=== PATIENT | male | born 1960 | race Caucasian/White ===

== ENCOUNTER → 2018-06-15 | Outpatient (CLI) | payer BC ==
[~2018-06-15] MED LIST: ALBU90OI6 INH; ASPI325 PO; CELE200 PO; FISH1000 PO; HYDR1TAB94 PO; LO-DOSE ASPIRIN81 MG PO; MULVITMIND PO; NUCYNTA75 MG PO; OMEG1CAP30 PO; OXYACE5T PO; PREG150 PO; Simvastatin10 MG PO; TADA10TA; Vitamin E & K S52 ML TP; ZESTORETIC 20-251 EA PO; Zestril30 MG
== END | disposition home or self-care (01) ==
LOC: PLD 11:03 → LAB SHORT 11:03
DX: D22.72 Melanocytic nevi of left lower limb, including hip (principal); D22.71 Melanocytic nevi of right lower limb, including hip
CPT/HCPCS: 88305

== ENCOUNTER 2018-07-03 06:53 | Day surgery (SDC) | payer BC ==
[~2018-07-03] VITALS: Ht 175.3 cm; Wt 117.0 kg
== END 2018-07-03 08:55 | disposition home or self-care (01) ==
LOC: ORSCSDS 06:53
PROVIDERS: Surgery
PROC: 0DBM8ZX Excision of Descending Colon, Via Natural or Artificial Opening Endoscopic, Diagnostic (ICD-10-PCS; principal; 2018-07-03 08:00)
DX: Z12.11 Encounter for screening for malignant neoplasm of colon (principal); D12.4 Benign neoplasm of descending colon; G47.33 Obstructive sleep apnea (adult) (pediatric); I10 Essential (primary) hypertension; Z79.82 Long term (current) use of aspirin; Z79.899 Other long term (current) drug therapy; Z87.891 Personal history of nicotine dependence
CPT/HCPCS: 88305; J0330; J0461; J1980; J2250; J2405; J2704; J7120

== ENCOUNTER 2018-08-21 20:14 | Emergency (ER) | payer BC ==
[~2018-08-21] VITALS: Ht 175.3 cm; Wt 119.8 kg
[2018-08-22] MEDS ORDERED: KETO10 PO (17:14)
== END 2018-08-21 21:08 | disposition home or self-care (01) ==
LOC: ER 20:14
DX: M75.101 Unspecified rotator cuff tear or rupture of right shoulder, not specified as traumatic (principal); Z88.6 Allergy status to analgesic agent; Z88.8 Allergy status to other drugs, medicaments and biological substances; Z91.013 Allergy to seafood; Z79.899 Other long term (current) drug therapy; Z79.82 Long term (current) use of aspirin; Z87.891 Personal history of nicotine dependence
CPT/HCPCS: 96372; 99283-25; J1885

== ENCOUNTER 2018-08-22 16:22 | Emergency (ER) | payer BC ==
[~2018-08-22] VITALS: Ht 165.1 cm; Wt 71.2 kg
[2018-08-22] MEDS ORDERED: KETO10 PO (17:14)
== END 2018-08-22 17:33 | disposition home or self-care (01) ==
LOC: ER 16:22
DX: M75.81 Other shoulder lesions, right shoulder (principal); G62.9 Polyneuropathy, unspecified; G47.30 Sleep apnea, unspecified; Z88.6 Allergy status to analgesic agent; Z91.013 Allergy to seafood; Z91.048 Other nonmedicinal substance allergy status; Z79.82 Long term (current) use of aspirin; Z79.899 Other long term (current) drug therapy; Z87.891 Personal history of nicotine dependence
CPT/HCPCS: 96372; 99283-25; J1885

== ENCOUNTER → 2019-12-10 | Outpatient (CLI) | payer BC ==
[~2019-12-10] MED LIST changes: +AMLODIPINE BES2.5 MG PO; +COQ1050 MG PO; -FISH1000 PO; +Fish Oil PO; +KETO10 PO; +MAGNESIUM PO; +MSM1000 M3 PO; +VITAMIN B COMPLEX PO; +VITAMIN B125000 MC1 PO
[2019-12-13 06:06] LABS: COTININE Negative ng/mL (Cutoff=300)
== END | disposition home or self-care (01) ==
LOC: LAB 16:58 → LAB SHORT 16:58
PROVIDERS: Orthopaedic Surgery
DX: Z01.818 Encounter for other preprocedural examination (principal); M17.12 Unilateral primary osteoarthritis, left knee; Z87.891 Personal history of nicotine dependence

== ENCOUNTER 2020-01-04 08:25 | Day surgery (SDC) | payer BC ==
[~2020-01-04] VITALS: Ht 175.3 cm; Wt 127.2 kg
--- NOTE | 2020-01-04 09:43 | NUR ---
Ambulatory in Day Surgery History, Chart, Medications and Allergies reviewed before start of procedure. Pre-Op teaching done. Pt verbalizes understanding.
--- NOTE | 2020-01-04 17:15 | NUR ---
SUMMARY VSS, PT MOVING BLE'S WELL, VOIDED 600CC, MEDICATED WITH OXYCODONE AND DILAUDID FOR PAIN, PT'S BROUGHT IN CPAP FROM HOME, DSG C/D/I, NO ACUTE CHANGES THIS SHIFT.
[2020-01-05 05:13] LABS: BASOPHILS ABSOLUTE AUTO 0.02 K/mm3 (0.00-0.23); BASOPHILS PERCENT AUTO 0 % (0-2); EOSINOPHILS ABSOLUTE AUTO 0.05 K/mm3 (0.00-0.68); EOSINOPHILS PERCENT AUTO 1 % (0-6); Hematocrit 36.1 % (37.0-53.0); Hemoglobin 12.4 g/dL (13.5-17.5); IMMATURE GRAN ABSOLUTE AUTO 0.04 K/mm3 (0.00-0.10); IMMATURE GRAN PERCENT AUTO 0 % (0-1); LYMPHOCYTES ABSOLUTE AUTO 1.21 K/mm3 (0.84-5.20); LYMPHOCYTES PERCENT AUTO 12 % (21-46); MONOCYTES ABSOLUTE AUTO 0.92 K/mm3 (0.16-1.47); MONOCYTES PERCENT AUTO 9 % (4-13); Mean Corpuscular HGB 30.1 pg (26.0-34.0); Mean Corpuscular HGB Conc 34.3 g/dL (31.5-36.5); Mean Corpuscular Volume 88 fL (80-100); NEUTROPHILS ABSOLUTE AUTO 8.31 K/mm3 (1.96-9.15); NEUTROPHILS PERCENT AUTO 79 % (41-73); Platelet Count 184 K/mm3 (150-400); RDW Coefficient Variation 12.1 % (11.7-14.2); RDW Standard Deviation 39.1 fL (35.1-46.3); Red Blood Cell Count 4.12 M/mm3 (4.30-5.90); White Blood Cell Count 10.55 K/mm3 (4.00-11.30)
[2020-01-05 05:54] LABS: Anion Gap 7 mmol/L (6-16); Blood Urea Nitrogen 13 mg/dL (8-24); Bun/Creatinine Ratio 16.7 (12.0-20.0); CO2, Blood 29 mmol/L (21-32); Calcium, Blood 8.5 mg/dL (8.5-10.1); Chloride, Blood 103 mmol/L (98-108); Creatinine, Blood 0.78 mg/dL (0.60-1.20); Glomerular Filtration Rate >60 (60-); Glucose, Blood 122 mg/dL (70-99); Potassium, Blood 3.6 mmol/L (3.5-5.5); Sodium, Blood 139 mmol/L (136-145)
--- NOTE | 2020-01-05 06:29 | NUR ---
SHIFT SUMMARY SITTING IN CHAIR AT BEDSIDE. HAS WORN C-PAP WHILE RESTING. AMBULATED TO BATHROOM AND USED URINAL AT BEDSIDE, TOLERATED WELL. PLEASANT AND COOPERATIVE THROUGHTOUT SHIFT. POLAR ELLIS IN PLACE TO LEFT KNEE, HAS C/OPAIN UNDER THE KNEE WELL. SECOND ICE PACK PLACED UNDER KNEE, TOLERATED WELL. LENA WRAP TO LEFT KNEE IN PLACE, C/D/I/. MEDICATED FOR PAIN AND DISCOMFORT PER EMAR. DENIES FURTHER NEEDS OR WANTS AT THIS TIME. SAFETY MEASURES IN PLACE. WILL CONTINUE TO MONITOR AND GIVE HAND OFF TO ONCOMING SHIFT USING SBAR.
[2020-01-05] MEDS ORDERED: OXYC10TA19 PO (08:06)
[2020-01-05] MEDS ORDERED: ASPI81CH PO (08:08)
--- NOTE | 2020-01-05 14:37 | NUR ---
DISCHARGE PT DISCHARGED HOME FROM UNIT AT AT APROX 1415. PT GIVEN WRITTEN AND VERBAL DISCHARGE INSTRUCTIONS AND VERBALIZED UNDERSTANDING OF THESE INSTRUCTIONS. IV REMOVED. PAIN MANAGED WITH PO PAIN MEDICATION-PT VERBALIZED PAIN MANAGABLE WHEN ASKED. WHEELCHAIR TO CAR.
== END 2020-01-05 14:17 | disposition home or self-care (01) ==
LOC: ORSCMMR 08:25 → ORD 09:45 → SURS 14:24 → ORSCMMR 01-05 14:17 → ORD 01-11 08:15
PROVIDERS: Orthopaedic Surgery
PROC: 8E0YXBZ Computer Assisted Procedure of Lower Extremity (ICD-10-PCS; principal; 2020-01-04 09:45)
PROC: 0SRD06A Replacement of Left Knee Joint with Oxidized Zirconium on Polyethylene Synthetic Substitute, Uncemented, Open Approach (ICD-10-PCS; principal; 2020-01-04 09:45)
DX: M17.12 Unilateral primary osteoarthritis, left knee (principal); G47.33 Obstructive sleep apnea (adult) (pediatric); I10 Essential (primary) hypertension; Z79.82 Long term (current) use of aspirin; Z79.899 Other long term (current) drug therapy; Z87.891 Personal history of nicotine dependence
CPT/HCPCS: 36415; 73560-LT; 80048; 85025; 88300; 94762; 97110; 97116; 97161; A9270; A9270-GY; C1776; J0171; J0690; J0735; J1170; J2250; J2704; J2795; J3010; J7120

== ENCOUNTER 2020-06-13 06:14 | Day surgery (SDC) | payer BC ==
[~2020-06-13] VITALS: Ht 175.3 cm; Wt 121.8 kg
[~2020-06-13 06:14] MED LIST changes: +ASPI81CH PO; +OXYC10TA19 PO; +Percocet 5-3251 EACH PO
[2020-06-13] MEDS ORDERED: AMLO5 PO (06:55)
--- NOTE | 2020-06-13 08:47 | NUR ---
Discharge instructions reviewed with patient. Patient verbalizes understanding. Copy given to patient to take home. LENA WRAP INTACT WITH BANDAGE. ABLE TO MOVE FINGERS. GAVE PT ARM SLING. STATES HE HAS ICE PACK AT HOME TO USE. DRESSED. Discharged via wheelchair to private car for ride home. NO C/O PAIN. STATES LEFT HAND/WRIST NUMB.
== END 2020-06-13 08:36 | disposition home or self-care (01) ==
LOC: ORSCMMR 06:14 → ORD 07:30 → ORSCMMR 07:30
PROVIDERS: Orthopaedic Surgery
PROC: 01N50ZZ Release Median Nerve, Open Approach (ICD-10-PCS; principal; 2020-06-13 07:30)
DX: G56.02 Carpal tunnel syndrome, left upper limb (principal); I10 Essential (primary) hypertension; G47.33 Obstructive sleep apnea (adult) (pediatric); E66.01 Morbid (severe) obesity due to excess calories; Z68.39 Body mass index [BMI] 39.0-39.9, adult; F17.210 Nicotine dependence, cigarettes, uncomplicated; Z79.82 Long term (current) use of aspirin; Z79.899 Other long term (current) drug therapy
CPT/HCPCS: J0690; J2250; J2704; J3010; J7120

== ENCOUNTER 2023-04-20 13:49 | Emergency (ER) | payer OTHER ==
[~2023-04-20] VITALS: Ht 177.8 cm; Wt 95.2 kg
[~2023-04-20 13:49] MED LIST changes: +AMLO5 PO
[2023-04-20 14:02] VITALS: BP 136/80
[2023-04-20] MEDS ORDERED: Ketorolac Tromethamine 30mg Vial IM ONE (14:10)
[2023-04-20] MEDS ORDERED: FentaNYL Citrate 50 MCG/ML 2 ML Injection IM ONE (14:10)
[2023-04-20] MEDS ORDERED: Gabapentin 300 MG Cap PO ONE (14:10)
[2023-04-20] MEDS ORDERED: Neurontin 300300 MG PO (15:06)
== END 2023-04-20 15:30 | disposition home or self-care (01) ==
LOC: ER 13:49
DX: M54.41 Lumbago with sciatica, right side (principal); G89.29 Other chronic pain; G62.9 Polyneuropathy, unspecified; G47.30 Sleep apnea, unspecified; Z88.6 Allergy status to analgesic agent; Z88.8 Allergy status to other drugs, medicaments and biological substances; Z91.013 Allergy to seafood; Z79.899 Other long term (current) drug therapy; Z79.82 Long term (current) use of aspirin
CPT/HCPCS: 96372-59; 96374; 99283-25; A9270; J1885; J3010

== ENCOUNTER 2024-05-04 09:09 | Day surgery (SDC) | payer OTHER ==
[~2024-05-04] VITALS: Ht 175.3 cm; Wt 131.1 kg
[~2024-05-04 09:09] MED LIST changes: +Atropine Sulfate 0.1 MG/ML 10ML SYR ONE; +Glycopyrrolate 0.2 MG/ML 1MLVIAL ONE; +Lactated Ringer's 1,000 ML IV ONE; +Lidocaine 2% 5 ML SDV ONE; +Lidocaine HCl/Pf 1% 5 ML VIAL ONE; +Neurontin 300300 MG PO; +Ondansetron HCl 2 MG / ML 2ML Vial ONE; +ePHEDrine Sulfate 50 MG/ML 1ML Injection ONE; +propofoL 50 ML IV ONE
[2024-05-04] MEDS ORDERED: Lactated Ringer's 1,000 ML IV ONE (09:45)
[2024-05-04 10:43] VITALS: BP 111/65
== END 2024-05-04 10:40 | disposition home or self-care (01) ==
LOC: ORSCSDS 09:09
PROVIDERS: Surgery
PROC: 0DJD8ZZ Inspection of Lower Intestinal Tract, Via Natural or Artificial Opening Endoscopic (ICD-10-PCS; principal; 2024-05-04 10:15)
DX: Z12.11 Encounter for screening for malignant neoplasm of colon (principal); Z86.0101 Personal history of adenomatous and serrated colon polyps; F41.9 Anxiety disorder, unspecified; F32.A Depression, unspecified; E78.00 Pure hypercholesterolemia, unspecified; I10 Essential (primary) hypertension; G47.33 Obstructive sleep apnea (adult) (pediatric); E66.9 Obesity, unspecified; Z68.41 Body mass index [BMI] 40.0-44.9, adult; F17.210 Nicotine dependence, cigarettes, uncomplicated; Z79.82 Long term (current) use of aspirin; Z79.899 Other long term (current) drug therapy
CPT/HCPCS: J0461; J2003; J2405; J2704; J7120